=== PATIENT | female | born 1950 | race Caucasian/White ===

== ENCOUNTER → 2017-04-04 | Outpatient (CLI) | payer OTHER ==
[~2017-04-04] MED LIST: AUGMENTIN 875875 MG PO; BENADRYL25 MG PO; BENICAR PO; BENICAR20 MG PO; CALCIUM 1,0001 EACH PO; CALCIUM PO; CELEXA10 MG; CELEXA20 MG PO; CIPROFLOXACIN500 M3 PO; CREON 10 CAPSUL1 CA1 PO; CREON PO; DIOVAN 80 MG TA80 M1 PO; FLEXERIL PO; HYDROCODON-ACE1 EAC7 PO; HYDROCODONE-AP1 EAC6 PO; HYDROXYCHLOROQ200 M1 PO; IBUPROFEN 200200 M1 PO; K-DUR 20 MEQ T20 MEQ PO; LORTAB PO; PANCREASE PO; PERCOCET 5-3251 EACH PO; PRILOSEC20 MG PO; PRILOSEC40 MG PO; SYNTHROID PO; SYNTHROID75 MCG PO; TAGAMETTAB; TRANSDERM-SCOP1 EACH TD
== END ==
LOC: RAD 10:29
DX: Z12.31 Encounter for screening mammogram for malignant neoplasm of breast (principal)

== ENCOUNTER 2017-11-02 20:08 | Inpatient (IN) | payer OTHER ==
[~2017-11-02] VITALS: Ht 154.9 cm; Wt 52.6 kg
[~2017-11-02 20:08] MED LIST changes: +SYNTHROID125 MC1 PO; -SYNTHROID75 MCG PO
[2017-11-02 20:17] VITALS: BP 175/85
[2017-11-02] MEDS ORDERED: PREDNISONE 10 M10 MG PO (20:30)
[2017-11-02 20:52] LABS: ABSOLUTE NEUTROPHILS 9.2 thou/uL (1.4-8.2); BASOPHILS 0.6 % (0.0-2.0); HEMATOCRIT 35.1 % (37.0-47.0); HEMOGLOBIN 11.8 gm/dL (12.0-15.0); MCH 30.4 pg (26.0-34.0); MCHC 33.8 g/dL (28.0-37.0); MCV 90.1 fL (80.0-100.0); MONOCYTES 4.8 % (1.0-8.0); PLATELET COUNT 276 thou/uL (150-400); POLYS 82.6 % (36.0-66.0); RBC 3.89 mil/uL (4.20-5.00); RDW 12.6 % (10.5-14.5); WBC 11.1 thou/uL (4.0-11.0)
[2017-11-02 21:00] LABS: CREATININE 0.7 mg/dL (0.6-1.0); POTASSIUM 3.6 mmol/L (3.5-5.1)
[2017-11-02 21:03] LABS: URINE BILIRUBIN NEGATIVE (Negative); URINE BLOOD NEGATIVE (Negative); URINE CLARITY CLEAR; URINE COLOR YELLOW; URINE GLUCOSE-RANDOM* NEGATIVE (Negative); URINE KETONES NEGATIVE (Negative); URINE LEUKOCYTES-REFLEX NEGATIVE (Negative); URINE NITRITE-REFLEX NEGATIVE (Negative); URINE PROTEIN (DIPSTICK) NEGATIVE (Negative); URINE SPECIFIC GRAVITY 1.015 (1.005-1.035); URINE UROBILINOGEN 0.2 E.U./dl (0.2-1.0)
[2017-11-02 21:06] LABS: ALBUMIN 3.5 g/dL (3.4-5.0); TOTAL BILIRUBIN 0.2 mg/dL (<0.1-1.0); TOTAL PROTEIN 6.8 g/dL (6.4-8.2)
[2017-11-02 22:26] VITALS: BP 129/69
[2017-11-02 23:08] VITALS: BP 134/73
[2017-11-03 05:47] VITALS: BP 139/78
[2017-11-03 07:43] VITALS: BP 142/74
[2017-11-03 10:57] LABS: HEMATOCRIT 33.8 % (37.0-47.0); HEMOGLOBIN 11.4 gm/dL (12.0-15.0); MCH 30.7 pg (26.0-34.0); MCHC 33.7 g/dL (28.0-37.0); MCV 91.2 fL (80.0-100.0); RBC 3.7 mil/uL (4.20-5.00); RDW 12.7 % (10.5-14.5); WBC 12.9 thou/uL (4.0-11.0)
[2017-11-03 12:11] LABS: ALBUMIN 3.3 g/dL (3.4-5.0); CALCIUM 8.5 mg/dL (8.5-10.1); CREATININE 0.6 mg/dL (0.6-1.0); POTASSIUM 4.1 mmol/L (3.5-5.1); TOTAL BILIRUBIN 0.3 mg/dL (<0.1-1.0)
[2017-11-03 17:26] VITALS: BP 126/72
[2017-11-03 20:00] VITALS: BP 138/70
[2017-11-04 04:00] VITALS: BP 142/89
[2017-11-04 09:02] LABS: HEMATOCRIT 35.1 % (37.0-47.0); HEMOGLOBIN 11.9 gm/dL (12.0-15.0); MCH 30.7 pg (26.0-34.0); MCHC 33.9 g/dL (28.0-37.0); MCV 90.5 fL (80.0-100.0); RBC 3.87 mil/uL (4.20-5.00); RDW 12.9 % (10.5-14.5); WBC 8.2 thou/uL (4.0-11.0)
[2017-11-04 09:28] VITALS: BP 143/78
[2017-11-04 14:13] VITALS: BP 143/78
== END 2017-11-04 14:40 | disposition home or self-care (01) | DRG 438 ==
LOC: ER 20:08 → EROBS 21:56 → 4N 21:56 → ENTRNSPT 11-04 14:30 → EDTRNSPTSTS 11-04 14:32 → 4N 11-04 14:40
PROVIDERS: Family Medicine; Physician Assistant
DX: K85.90 Acute pancreatitis without necrosis or infection, unspecified (principal); E43 Unspecified severe protein-calorie malnutrition; I10 Essential (primary) hypertension; E05.90 Thyrotoxicosis, unspecified without thyrotoxic crisis or storm; Z90.49 Acquired absence of other specified parts of digestive tract; Z88.8 Allergy status to other drugs, medicaments and biological substances; Z91.041 Radiographic dye allergy status; Z91.040 Latex allergy status; Z88.5 Allergy status to narcotic agent; Z91.013 Allergy to seafood; Z87.891 Personal history of nicotine dependence
CPT/HCPCS: 10790

== ENCOUNTER 2018-04-24 08:50 | Inpatient (IN) | payer OTHER ==
[~2018-04-24] VITALS: Ht 154.9 cm; Wt 50.3 kg
--- NOTE | ~2018-04-24 | HC ---
[facility] [place] [address] CONSULTATION Name: JOE HAY Room #: 449-I ADM IN M.R.#: [id number] Admission: 04/24/18 Attend Phys: Zelalem Hanson MD Discharge: Date of : 48 Report #: [id number] THIS REPORT FOR: //name// CC: Zelalem Hanson DATE OF SERVICE: 04/25/2018 CHIEF COMPLAINT: Surgical wound, abdominal wall. HISTORY OF PRESENT ILLNESS: This is a 67-year-old female patient who has recently had a long hospital stay in [place]. She developed an acute bowel perforation in early March and subsequent sepsis, respiratory failure requiring a 2-week ICU stay. She required dialysis and ventilatory support. She apparently had subsequent surgery due to obstruction and ischemia. She has had a right hemicolectomy and end-ileostomy. I was [facility] to [facility]. She has a midline incision line, most of which has healed. She has 2 openings but the most inferior of the two was clean and granulating and approximately 1-2 cm in depth. The more proximal, however, extended much deeper greater than 7 cm in depth and had a milky yellow mucoid type discharge of moderate quantity. This appearance differed very much from the output in her ileostomy bag. The drainage was not damaging the skin but was preventing the ostomy bag from staying in place. I discussed this with her primary care physician, Dr. Hanson to discuss the concern about a possible enterocutaneous or colocutaneous fistula. She was brought to the hospital and has had a fistulogram and CT, which seems to demonstrate an intra-abdominal fluid collection. It is thus far unclear as to the origin of the fluid collection whether it is colon or small bowel or other. The patient denies much pain. She is a little bit worried. She states she has a good appetite. ALLERGIES: Include LATEX, SHELLFISH, IODINE, HYDROMORPHONE and MORPHINE. MEDICATIONS: Include carvedilol, losartan, pantoprazole, inulin, iron, Lidoderm, Centrum Silver, Norvasc, vitamin C, Synthroid and Celexa. PAST MEDICAL HISTORY: Positive for hypertension, hyperthyroidism, Jose M's thyroiditis, previous laminectomy, cholecystectomy, history of pancreatitis x 12, previous Whipple procedure, bowel resection and sepsis. SOCIAL HISTORY: Negative for alcohol or tobacco use. She is a former smoker. She is and accompanied by her . REVIEW OF SYSTEMS: CONSTITUTIONAL: The patient denies fever or chills. She has had some weight loss. ENT: The patient denies earache, nasal drainage, [place] [address] CONSULTATION Name: BHARTIJOEARA GUILLENE Room #: 449-I ADM IN M.R.#: [id number] Admission: 04/24/18 Attend Phys: Zelalem Hanson MD Discharge: Date of : 48 Report #: [id number] EYES: The patient denies visual changes, redness or drainage. PULMONARY: The patient denies cough or shortness of breath. CARDIOVASCULAR: The patient denies chest pain, palpitations or diaphoresis. GASTROINTESTINAL: The patient denies nausea, vomiting or diarrhea. She is having moderate output from the midline surgical incision line. GENITOURINARY: The patient denies frequency or urgency of urination. Denies dysuria. Other systems in a 14-point review of systems are negative. PHYSICAL EXAMINATION: VITAL SIGNS: At this time include pulse 58, respiratory rate of 18, blood pressure of 91/43 and temperature 97.4. GENERAL: This is a chronically ill-appearing female patient who appears to be in minimal distress. HEENT: Head normocephalic. Nose and throat are clear. NECK: Supple. LUNGS: Clear. HEART: Regular rhythm. ABDOMEN: Soft. Bowel sounds are present. There is an ileostomy on the right lower quadrant with moderate liquid brownish green output. She has a midline surgical incision that is mostly healed. There are 2 areas of separation. The inferior one is clean and granulating and relatively shallow. The proximal one is deeper probing greater than 7 cm in depth with yellow mucoid type output. Remainder of the abdomen is soft and nontender. EXTREMITIES: Without clubbing or cyanosis. NEUROLOGICAL: The patient is alert and oriented and appropriate. LABORATORY DATA: Includes sodium 123, potassium 5.7, chloride 92, CO2 15, BUN 79, creatinine is 2.4 and glucose 134. Total bilirubin 0.4, calcium 10.3, alkaline phosphatase is elevated at 290, total protein 8.7 and albumin 3.4. White blood cell count is slightly elevated at 11.1 with a hemoglobin of 11.7 and hematocrit of 88.3. RADIOLOGICAL DATA: Barium enema studies demonstrate no evidence for any barium leakage from the proximal transverse colon stump. This may not necessarily exclude the presence of a colocutaneous fistula. She had a sinus tract study, which demonstrates a sinus tract injections under fluoroscopy with followup CT demonstrated ill-defined amorphous collection of contrast material in the right abdomen resulting from the more cephalad sinus tract injection and most of this contrast material was pulling at the resected proximal end of the transverse colon along the line of surgical moustapha with a previous right colon resection. They are ill-defined finger-like collections of contrast material extending anteriorly, laterally and cephalad from the larger collection and while there is no definite contrast material seen within the bowel, the close vicinity of these collections of contrast material to the resected margin of the transverse colon [facility] [address] [place] [address] CONSULTATION Name: JOE HAY Room #: 449-I ADM IN M.R.#: [id number] Admission: 04/24/18 Attend Phys: Zelalem Hanson MD Discharge: Date of : 48 Report #: [id number] is concerning for at least 1 fistulous communication between the extraluminal contrast material and the most proximal transverse colon and bilateral small pleural effusions were noted as well. 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 RECOMMENDATIONS: At this point in time, she has been seen by Dr. Vega, General Surgery and his input is appreciated. She will continue to eat. Antibiotics have been recommended and pending culture results. It is unclear as to whether she will require a drainage catheter to be placed into the fluid collection versus simply allowing an ostomy appliance to be fitted over the area of drainage. Further decision making pending review with the General Surgery. We will continue with packing gauze to the inferior distal incision line. We will leave the other one open to drain. <ELECTRONICALLY SIGNED> By: Ibrahima Jolly MD 04/26/18 1623 1647 0051 Ibrahima Jolly MD /nt
--- NOTE | ~2018-04-24 | HC ---
[facility] [place] [address] CONSULTATION Name: BHARTIJOE CLIFFORD Room #: 213-P [facility] IN M.R.#: [id number] Admission: 04/24/18 Attend Phys: Zelalem Hanson MD Discharge: 05/01/18 Date of : 48 Report #: [id number] THIS REPORT FOR: //name// CC: Zelalem Hanson REASON FOR CONSULTATION: Acute kidney injury. REASON FOR PRESENTATION: Increased output through her colostomy. HISTORY OF PRESENT ILLNESS: The patient is 67 with past medical history of hypertension. She had a very complicated hospital course in [place]. Apparently, the patient developed a cecal perforation with intra-abdominal peritonitis and fecal contamination. She was in the intensive care unit for an extended period of time, requiring dialysis and vent support. She ended up with right hemicolectomy and ileostomy. She was then transferred to a rehab facility here in [place]. There was a concern that she might be having a fistula. CT abdomen revealed what seems to be a fluid collection. She is currently being followed by surgical team, hospitalist team. She has leukocytosis. When she presented to the Emergency Room, her creatinine was 2.6. It is up to 3.8. She developed hyperkalemia today with a potassium up to 6.8. She also has significant metabolic acidosis. I am being consulted to manage her acute kidney injury. The pathology of the samples from her abdominal surgery revealed stage 3 adenocarcinoma of the colon. She did require 5 times dialysis treatments and ended up having a normal creatinine at the time of the discharge. PAST MEDICAL HISTORY: 1. Status post bowel perforation. 2. Adenocarcinoma, stage 3. 3. Hypothyroidism. 4. Status post . 5. Laminectomy. 6. Cholecystectomy. 7. Status post Whipple procedure. 8. Recent prolonged hospital stay, requiring vent support, dialysis for septic shock. REVIEW OF SYSTEMS: GENERAL: No fever or chills. CARDIOVASCULAR: No chest pain or palpitation. PULMONARY: No cough or hemoptysis. GASTROINTESTINAL: As per the history of present illness. GENITOURINARY: No frequency, no urgency. MEDICATIONS: 1. Carvedilol. 2. Amlodipine. 3. Levothyroxine. [facility] [address] [place] [address] CONSULTATION Name: JOE HAY Room #: 213-P [facility] IN [facility].#: [id number] Admission: 04/24/18 Attend Phys: Zelalem Hanson MD Discharge: 05/01/18 Date of : 48 Report #: [id number] SOCIAL HISTORY: She now resides in a nursing facility. No drug or alcohol abuse. PHYSICAL EXAMINATION: GENERAL: She is alert, oriented, in no apparent distress. VITAL SIGNS: Blood pressure is 93/51. HEAD AND NECK: No jugular venous distention, no bruit, no thyromegaly. CHEST: Clear to auscultation. CARDIOVASCULAR: No rub detected. ABDOMEN: Soft, nontender. Ileostomy present. LOWER EXTREMITIES: No edema. LABORATORY DATA: Reviewed. White blood cell count 13.0, potassium 6.8, carbon dioxide 10, BUN is 95, creatinine is 3.8. ASSESSMENT, IMPRESSION AND PLAN: 1. Acute kidney injury. 2. Hyperkalemia. 3. Metabolic acidosis. 4. Intra-abdominal fluid collection. 5. Hypotension with what seems to be early sepsis. 6. Adenocarcinoma of the colon. 7. Status post bowel perforation. 8. Status post prolonged ICU hospital stay, requiring dialysis and vent support. 9. Transfer the patient to the ICU. 10. Aggressive fluid resuscitation. 11. Reformulate her IV fluids. 12. Treat her hyperkalemia. 13. Strict input and output. 14. Follow cultures. 15. Adjust antibiotic. 16. We will follow along after we repeat the labs this afternoon. <ELECTRONICALLY SIGNED> By: Courtney Cordova MD 05/06/18 0741 0810 1316 Courtney Cordova MD /nt
--- NOTE | ~2018-04-24 | HC ---
[facility] [place] [address] CONSULTATION Name: BREANNE VELAZCO Room #: 213-P ADM IN M.R.#: [id number] Admission: 04/24/18 Attend Phys: Zelalem Hanson MD Discharge: Date of : 48 Report #: [id number] THIS REPORT FOR: //name// CC: Zelalem Hanson DATE OF SERVICE: 04/26/2018 CONSULTATION: Infectious Diseases. 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 Infectious Disease consultation was requested to assist with antibiotic management. The patient was visiting her grandchild in [place] approximately 5 weeks ago when she developed abdominal pain. She was found to have a perforated bowel related probably to previous surgical adhesions. She required a bowel resection, but had a very complicated postoperative course with sepsis, respiratory failure requiring a ventilator, renal failure requiring dialysis, ischemic bowel requiring second laparotomy. The patient was stabilized and returned to her home in [place] for rehabilitation. In rehabilitation, Dr. Jolly noted that the midline incision has increasing mucousy drainage. She was admitted to the hospital for further evaluation. CT scan suggests a large abscess between the draining hole in the midline surgical wound and the stump of the left hemicolon. Infectious Disease consultation was requested to assist with antibiotic management. PAST MEDICAL HISTORY: The patient has a very complex past medical history, which includes recurring bouts of pancreatitis. 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 She has only had one episode of pancreatitis since the Whipple. She had about 11 episodes prior to that. PAST SURGICAL HISTORY: Includes cholecystectomy, section, laminectomy as well as the 2 recent laparotomies. MEDICAL DIAGNOSES: Include hypertension, Jose M thyroiditis with resulting hypothyroidism. ALLERGIES: THE PATIENT HAS ALLERGY TO HYDROMORPHONE. FAMILY HISTORY: Noncontributory. SOCIAL HISTORY: The patient is . She is retired. She did smoke cigarettes, but quit about a year ago. No history of alcohol or drugs. REVIEW OF SYSTEMS: [facility] [address] [place] [address] CONSULTATION Name: BREANNE VELAZCO Room #: 213-P [facility] IN M.R.#: [id number] Admission: 04/24/18 Attend Phys: Zelalem Hanson MD Discharge: Date of : 48 Report #: [id number] GENERAL: At this time the patient is not complaining of fevers, chills, sweats. She feels very weak, but thinks this is improving. ENT: No headache, sinus congestion, sore throat, trouble swallowing. CHEST: No cough, chest pain, shortness of breath. The patient is on room air without dyspnea. She is very weak. GASTROINTESTINAL: The patient denies nausea, vomiting. She has a colostomy. She is able to eat with minimal to mild discomfort. GENITOURINARY: No complaints. She is off dialysis. EXTREMITIES: No complaints. PHYSICAL EXAMINATION: GENERAL: The patient appears to be a chronically ill patient, but comfortable, not in any distress. VITAL SIGNS: Normal. The patient is afebrile. Her weight is 109 pounds, which is about her baseline. SKIN: Shows no rash, nor exanthem. Surgical wound on the abdomen as described below. ENT: Negative. NEUROLOGIC: Mentally awake, alert, appropriate. She is oriented. She appears to be fairly upbeat psychologically considering the recent situation. CARDIOVASCULAR: Heart sounds are normal. LUNGS: Clear bilaterally. ABDOMEN: Belly is thin, soft with minimal tenderness. Colostomy is present on the right side. There is a midline incision. In the center of the midline incision there is a puddle of white mucus material, which is soiling the dressing. The belly is mildly tender. There is no rebound or guarding. EXTREMITIES: Thin, but otherwise unremarkable. LABORATORY DATA: White count 11.1, hemoglobin 11.7, platelets 536,000. Electrolytes: Sodium 123, potassium 5.7, chloride 92, bicarb 15, BUN 79, creatinine 2.4, alkaline phosphatase is elevated at 290. SGOT and SGPT are normal. Gram stain from the drainage from the midline incision shows gram-positive cocci in pairs, clusters and chains. IMPRESSION: The patient most likely has a connection between the left hemicolon mucous fistula, an abdominal abscess in the incision creating a draining colocutaneous fistula and draining abscess cavity. This is not enteric since the GI tract exits through the ileostomy on the right. However, she does have a mucus abscess. The cultures suggest what would probably be some mixture of strep. At this time, I concur with Zosyn for appropriate coverage of abdominal abscess. I discussed with the patient surgical versus nonsurgical treatment. It is notable that her alkaline phosphatase is quite elevated. Her creatinine is elevated, but she is just finishing coming off dialysis a few weeks ago. It may be worthwhile to rule out any obstructive disease in the biliary tract, [facility] [address] [facility] [place] [address] CONSULTATION Name: BREANNE VELAZCO Room #: 213-P ADM IN M.R.#: [id number] Admission: 04/24/18 Attend Phys: Zelalem Hanson MD Discharge: Date of : 48 Report #: [id number] particularly with her past Whipple procedure. It will be important to check her TSH with her history of thyroiditis. We will continue Zosyn and await input from our surgical colleagues regarding medical versus nonmedical therapy for the abscess and fistula. At this point, the abscess appears to be draining adequately spontaneously and will probably not need any additional drains as long as this continues. <ELECTRONICALLY SIGNED> By: Marky Stallings MD 04/27/185 1835 1117 Marky Stallings MD /nt
--- NOTE | ~2018-04-24 | HC ---
[facility] [place] [address] CONSULTATION Name: BHARTIJOE DARRIN Room #: 213-P [facility] IN M.R.#: [id number] Admission: 04/24/18 Attend Phys: Zelalem Hanson MD Discharge: 05/01/18 Date of : 48 Report #: [id number] THIS REPORT FOR: //name// CC: Zelalem Hanson DATE OF SERVICE: 04/28/2018 HISTORY OF PRESENT ILLNESS: The patient is a 67-year-old white female who had a recent long complicated hospital stay in [place]. She had acute bowel perforation in early March with sepsis; respiratory failure; renal failure, needed dialysis; and was on mechanical ventilation. She had a second bowel surgery due to obstruction/ischemia. She was transferred back from the [place] area initially to advanced off the ventilator, had an open abdominal wound. She was seen by wound care with concern with increased output. She underwent a fistulogram here at [facility], was noted to have intra-abdominal cavity. Surgeries involved with no further intervention recommended at this time. She is being monitored regarding acute renal insufficiency. Wound grew out methicillin sensitive Staph aureus and she is on IV antibiotics as per Infectious Disease. We are seeing her in rehabilitation medicine consultation. PAST MEDICAL HISTORY: Includes hypertension, hyperthyroidism, left knee scope, Jose M's thyroiditis, laminectomy, irritable bowel syndrome, pancreatitis x 12 hospitalizations, ERCP x 4, Whipple procedure on 07/02/2014, bowel resection, sepsis, and colostomy. HABITS: Former tobacco user, quit greater than a year ago. No history of alcohol abuse. MEDICATIONS: Please see the full medication listing includes vitamins, herbals, and supplements. ALLERGIES: LATEX, IODINE, SHELLFISH, HYDROMORPHONE, AND MORPHINE. 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 Did not utilize gait aids, has steps in. REVIEW OF SYSTEMS: Did not offer any current complaints of chest pain, shortness of breath, or abdominal discomfort. No focal extremity pain complaints. PHYSICAL EXAMINATION: GENERAL: A 67-year-old thin white female, in no obvious distress. The patient is alert. She is pleasant. VITAL SIGNS: Last recorded temperature 97.9, pulse 68, respirations 18, blood pressure 118/63. HEENT: Appeared to be benign. NEUROLOGIC: Cranial nerves grossly intact. Facies are symmetric. [address] [address] CONSULTATION Name: JOE HAY Room #: 213-P [facility] IN M.R.#: [id number] Admission: 04/24/18 Attend Phys: Zelalem Hanson MD Discharge: 05/01/18 Date of : 46 Report #: [id number] range of motion of both upper extremities, strength is grade 4-/5. DTRs are trace to 1. ABDOMEN: She has the ostomy in place. Midline abdominal incision with dressing in place. EXTREMITIES: Lower extremities, no focal calf swelling, functional range of motion, strength is grade 4-/5. DTRs are trace to 1. She has been min assist with sit to stand. Gait was 400 feet front-wheeled walker, min assist. ASSESSMENT: A 67-year-old white female with the following problem list: 1. Medical complexity with generalized debilitation. 2. Intra-abdominal infection. 3. Status post prior resection/colostomy for bowel obstruction. 4. Acute renal insufficiency. 5. A surgical site infection of the abdomen following colon resection for obstruction and cecal perforation. No definite colonic fistula identified. 6. History of pancreatectomy Whipple. PLAN: Therapies are continuing to work with her including PT and OT. Insurance will need to be checked regarding rehab therapy options. <ELECTRONICALLY SIGNED> By: Rene Proctor MD 05/06/18 1455 1109 [id number] Rene Proctor MD /[facility]
[~2018-04-24 08:50] MED LIST changes: +PREDNISONE 10 M10 MG PO
[2018-04-24 09:44] LABS: CREATININE 2.6 mg/dL (0.6-1.0)
[2018-04-24] MEDS ORDERED: CARVEDILOL3.125 MG PO (14:36)
[2018-04-24] MEDS ORDERED: AVAPRO75 MG PO (14:38)
[2018-04-24] MEDS ORDERED: PROTONIX40 M1 PO (14:39)
[2018-04-24] MEDS ORDERED: IRON325 PO (14:40)
[2018-04-24] MEDS ORDERED: FIBER GUMMIES2 GM PO (14:40)
[2018-04-24] MEDS ORDERED: LIDODERM1 EACH TRANSDERM (14:41)
[2018-04-24] MEDS ORDERED: CENTRUM SILVER1 EAC4 PO (14:42)
[2018-04-24] MEDS ORDERED: VITAMINC500 PO (14:44)
[2018-04-24] MEDS ORDERED: NORVASC10 MG PO (14:44)
[2018-04-24 15:03] VITALS: BP 108/57
[2018-04-24 17:02] LABS: ABSOLUTE NEUTROPHILS 7.9 thou/uL (1.4-8.2); BASOPHILS 1.3 % (0.0-2.0); EOSINOPHILS 4.1 % (0.0-3.0); HEMATOCRIT 34.7 % (37.0-47.0); HEMOGLOBIN 11.7 gm/dL (12.0-15.0); LYMPHOCYTES 14.1 % (24.0-44.0); MCH 29.8 pg (26.0-34.0); MCHC 33.8 g/dL (28.0-37.0); MCV 88.3 fL (80.0-100.0); MONOCYTES 8.9 % (1.0-8.0); PLATELET COUNT 536 thou/uL (150-400); POLYS 71.6 % (36.0-66.0); RBC 3.93 mil/uL (4.20-5.00); RDW 16.2 % (10.5-14.5); WBC 11.1 thou/uL (4.0-11.0)
[2018-04-24 17:23] LABS: ALBUMIN 3.4 g/dL (3.4-5.0); CALCIUM 10.3 mg/dL (8.5-10.1); CREATININE 2.4 mg/dL (0.6-1.0); POTASSIUM 5.7 mmol/L (3.5-5.1); TOTAL BILIRUBIN 0.4 mg/dL (<0.1-1.0); TOTAL PROTEIN 8.7 g/dL (6.4-8.2)
[2018-04-24 19:12] VITALS: BP 104/52
[2018-04-25 00:08] VITALS: BP 105/60
[2018-04-25 04:25] VITALS: BP 107/55
[2018-04-25] MEDS ORDERED: ARANESP60 MCG/0.3 SUBQ (07:48)
[2018-04-25 09:08] VITALS: BP 108/57
[2018-04-25 15:53] VITALS: BP 91/43
[2018-04-25 18:57] VITALS: BP 87/45
[2018-04-26 03:22] VITALS: BP 105/55
[2018-04-26 07:49] VITALS: BP 111/50
[2018-04-26 15:46] VITALS: BP 98/55
[2018-04-26 20:00] VITALS: BP 93/51
[2018-04-27 05:56] LABS: HEMATOCRIT 30.3 % (37.0-47.0); HEMOGLOBIN 10.1 gm/dL (12.0-15.0); MCH 29.6 pg (26.0-34.0); MCHC 33.2 g/dL (28.0-37.0); MCV 89.2 fL (80.0-100.0); RBC 3.39 mil/uL (4.20-5.00)
[2018-04-27 06:03] LABS: ALBUMIN 2.6 g/dL (3.4-5.0); CALCIUM 9.4 mg/dL (8.5-10.1); MAGNESIUM 2.2 mg/dL (1.8-2.4); TOTAL BILIRUBIN 0.3 mg/dL (<0.1-1.0); TOTAL PROTEIN 7.6 g/dL (6.4-8.2)
[2018-04-27 06:12] LABS: POTASSIUM 6.8 mmol/L (3.5-5.1)
[2018-04-27 06:13] LABS: CREATININE 3.8 mg/dL (0.6-1.0)
[2018-04-27 08:21] VITALS: BP 111/59
[2018-04-27 08:55] VITALS: BP 100/54
[2018-04-27 10:31] LABS: CALCIUM 8.3 mg/dL (8.5-10.1); CREATININE 3.9 mg/dL (0.6-1.0)
[2018-04-27 10:39] LABS: POTASSIUM 5.4 mmol/L (3.5-5.1)
[2018-04-27 12:00] VITALS: BP 85/52
[2018-04-27 12:56] LABS: URINE POTASSIUM-RANDOM* 21.5 mmol/L
[2018-04-27 12:57] LABS: URINE BILIRUBIN NEGATIVE (Negative); URINE BLOOD NEGATIVE (Negative); URINE CLARITY CLOUDY; URINE COLOR YELLOW; URINE GLUCOSE-RANDOM* NEGATIVE (Negative); URINE KETONES NEGATIVE (Negative); URINE LEUKOCYTES NEGATIVE (Negative); URINE NITRITE NEGATIVE (Negative); URINE PROTEIN (DIPSTICK) NEGATIVE (Negative); URINE UROBILINOGEN 0.2 E.U./dl (0.2-1.0)
[2018-04-27 12:59] LABS: URINE CREATININE-RANDOM* 42.2 mg/dL; URINE PROTEIN-RANDOM* 39.2 mg/dL (<11.9)
[2018-04-27 13:35] LABS: BE(vivo) -16.3 mmol/L (-2 to +3); HCO3 9.2 mmol/L (22.0-26.0); PCO2 21.3 mmHg (35.0-45.0); pH 7.251 (7.360-7.450); sO2 96.1 % (92.0-98.0)
[2018-04-27 15:21] LABS: ALBUMIN 2.1 g/dL (3.4-5.0); CALCIUM 8.8 mg/dL (8.5-10.1); CREATININE 3.5 mg/dL (0.6-1.0); POTASSIUM 5.5 mmol/L (3.5-5.1)
[2018-04-27 16:20] VITALS: BP 101/58
[2018-04-27 19:35] VITALS: BP 93/52
[2018-04-28 00:30] VITALS: BP 105/55
[2018-04-28 04:28] VITALS: BP 116/60
[2018-04-28 05:56] LABS: HEMATOCRIT 25.1 % (37.0-47.0); HEMOGLOBIN 8.7 gm/dL (12.0-15.0); MCH 30.1 pg (26.0-34.0); MCHC 34.7 g/dL (28.0-37.0); MCV 86.6 fL (80.0-100.0); RBC 2.9 mil/uL (4.20-5.00); RDW 17.2 % (10.5-14.5)
[2018-04-28 06:16] LABS: CALCIUM 8.4 mg/dL (8.5-10.1); CREATININE 2.6 mg/dL (0.6-1.0); MAGNESIUM 1.7 mg/dL (1.8-2.4); PHOSPHORUS 4.8 mg/dL (2.5-4.9); TOTAL BILIRUBIN 0.3 mg/dL (<0.1-1.0); TOTAL PROTEIN 6.1 g/dL (6.4-8.2)
[2018-04-28 06:23] LABS: POTASSIUM 4.2 mmol/L (3.5-5.1)
[2018-04-28 11:13] VITALS: BP 96/58
[2018-04-28 12:08] LABS: KAPPA FREE LIGHT CHAINS 131.7 mg/L (3.3-19.4); KAPPA/LAMBDA RATIO 1.94 (0.26-1.65); LAMBDA FREE LIGHT CHAINS 67.8 mg/L (5.7-26.3)
[2018-04-28 15:29] VITALS: BP 105/65
[2018-04-28 17:09] LABS: GLOBULIN TOTAL 4.5 g/dL (2.2-3.9); M-SPIKE Not Observed g/dL (Not Observed)
[2018-04-28 19:53] VITALS: BP 106/60
[2018-04-29 05:05] VITALS: BP 126/73
[2018-04-29 05:35] LABS: ALBUMIN 1.9 g/dL (3.4-5.0); CALCIUM 8.1 mg/dL (8.5-10.1); PHOSPHORUS 3.4 mg/dL (2.5-4.9); POTASSIUM 3.4 mmol/L (3.5-5.1)
[2018-04-29 05:36] LABS: CREATININE 1.6 mg/dL (0.6-1.0)
[2018-04-29 07:20] VITALS: BP 128/69
[2018-04-29 07:47] LABS: MAGNESIUM 2.3 mg/dL (1.8-2.4)
[2018-04-29 15:08] VITALS: BP 125/76
[2018-04-29 20:18] VITALS: BP 139/78
[2018-04-30 04:10] VITALS: BP 141/79
[2018-04-30 07:05] VITALS: BP 151/83
[2018-04-30 07:19] VITALS: BP 157/112
[2018-04-30 09:34] LABS: CALCIUM 8.7 mg/dL (8.5-10.1); CREATININE 1.4 mg/dL (0.6-1.0); POTASSIUM 4.1 mmol/L (3.5-5.1)
[2018-04-30 09:39] LABS: ALBUMIN 2.3 g/dL (3.4-5.0)
[2018-04-30 12:05] VITALS: BP 139/72
[2018-04-30 15:14] VITALS: BP 131/78
[2018-04-30 19:57] VITALS: BP 157/85
[2018-05-01 04:23] VITALS: BP 171/98
[2018-05-01 05:21] LABS: ALBUMIN 2.1 g/dL (3.4-5.0); CALCIUM 8.5 mg/dL (8.5-10.1); CREATININE 0.9 mg/dL (0.6-1.0); PHOSPHORUS 3.1 mg/dL (2.5-4.9); POTASSIUM 4.2 mmol/L (3.5-5.1)
[2018-05-01 06:38] VITALS: BP 160/81
[2018-05-01 07:54] VITALS: BP 174/94
[2018-05-01] MEDS ORDERED: ANCEF 1GM1 GM/50 M1 IVPB (11:05)
== END 2018-05-01 16:12 | DRG 862 ==
LOC: RAD 08:50 → 2N 13:40 → 4W 13:40 → RAD 15:57 → SICU 04-26 18:17 → 2N 04-27 09:24
PROVIDERS: Family Medicine; Hospitalist
PROC: B543ZZA Ultrasonography of Right Jugular Veins, Guidance (ICD-10-PCS; principal; 2018-04-24)
PROC: 05HM33Z Insertion of Infusion Device into Right Internal Jugular Vein, Percutaneous Approach (ICD-10-PCS; principal; 2018-04-24)
DX: T81.4XXA Infection following a procedure, initial encounter (principal); A41.9 Sepsis, unspecified organism; K63.2 Fistula of intestine; N17.9 Acute kidney failure, unspecified; E87.2 Acidosis; E87.1 Hypo-osmolality and hyponatremia; C18.9 Malignant neoplasm of colon, unspecified; Y83.3 Surgical operation with formation of external stoma as the cause of abnormal reaction of the patient, or of later complication, without mention of misadventure at the time of the procedure; E87.5 Hyperkalemia; E83.52 Hypercalcemia; I10 Essential (primary) hypertension; E05.90 Thyrotoxicosis, unspecified without thyrotoxic crisis or storm; E87.6 Hypokalemia; E06.3 Autoimmune thyroiditis; E03.9 Hypothyroidism, unspecified; M54.9 Dorsalgia, unspecified; B95.61 Methicillin susceptible Staphylococcus aureus infection as the cause of diseases classified elsewhere; D64.9 Anemia, unspecified; T37.8X5A Adverse effect of other specified systemic anti-infectives and antiparasitics, initial encounter; Z90.410 Acquired total absence of pancreas; Z90.49 Acquired absence of other specified parts of digestive tract; Z87.891 Personal history of nicotine dependence; Z98.891 History of uterine scar from previous surgery; Z68.20 Body mass index [BMI] 20.0-20.9, adult; Y92.89 Other specified places as the place of occurrence of the external cause; Z79.4 Long term (current) use of insulin; Z79.899 Other long term (current) drug therapy; Z91.041 Radiographic dye allergy status; Z91.040 Latex allergy status; Z88.5 Allergy status to narcotic agent; Z91.013 Allergy to seafood
CPT/HCPCS: 10047; 10797; 15002; 27000

== ENCOUNTER → 2018-12-04 | Outpatient (CLI) | payer OTHER ==
[~2018-12-04] VITALS: Ht 157.5 cm; Wt 42.6 kg
[~2018-12-04] MED LIST changes: +ANCEF 1GM1 GM/50 M1 IVPB; +ARANESP60 MCG/0.3 SUBQ; +AVAPRO75 MG PO; +CARVEDILOL3.125 MG PO; +CENTRUM SILVER1 EAC4 PO; +FIBER GUMMIES2 GM PO; +HAIR, SKIN & N1 EAC1 PO; +IRON325 PO; +LIDODERM1 EACH TRANSDERM; +NORVASC10 MG PO; +PROTONIX40 M1 PO; +SYNTHROID150 MCG PO; +TYLENOL EXTRA500 MG PO; +VITAMINC500 PO
--- NOTE | 2018-12-05 16:16 | P ---
[facility] [place] [address] PROCEDURE REPORT Name: JOE HAY Room #: [facility].#: [id number] Admission: 12/04/18 ������������������ Attend Phys: Marky Neely MD Discharge: ������������������ Date of : 48 Report #: [id number] THIS REPORT FOR: //name// CC: Marky Larson MD BRIEF HISTORY: The patient is a 68-year-old woman with a history of colon perforation as a result of a colon cancer, which required urgent surgical intervention with temporary ileostomy. The patient reports that she has had takedown of her ileostomy and reestablishment of continuity of the GI tract. She also reports that genetic markers on her tumor were negative. PREOPERATIVE DIAGNOSIS: History of colon cancer. POSTOPERATIVE DIAGNOSIS: History of colon cancer with normal surveillance examination. MEDICATIONS: Deep sedation with propofol per Anesthesia. SPECIMEN: None. ESTIMATED BLOOD LOSS: None. PROCEDURE: Colonoscopy to ileocolonic anastomosis and ileum. FINDINGS: Prior to propofol sedation, procedure of colonoscopy discussed with the patient as well as potential risks and its complications. She indicates she understands and desires to proceed. DESCRIPTION OF PROCEDURE: With the patient in left lateral decubitus position, digital examination was completed, which revealed no abnormalities. Subsequently, the Olympus video colonoscope was introduced in the rectum, advanced under direct vision to the proximal colon. In the proximal colon, the ileocolonic anastomosis was identified. It was unremarkable and I was able to easily advance the scope into the distal ileum, which is noted to be unremarkable as well. At that point, the scope was slowly withdrawn and careful circumferential views were obtained. Upon slow withdrawal of the scope, the prep was good. Mucosa was within normal limits, normal vascular pattern, normal light reflex. No neoplastic or inflammatory changes were seen. No polyps were seen on this examination. She had normal mucosa throughout. The scope was withdrawn in the rectum and no abnormalities were seen. Upon retroflexion, no abnormalities were seen. Scope was withdrawn. The patient tolerated the procedure well. CONDITION OF THE PATIENT UPON DISCHARGE: Following procedure, the patient [address] [address] PROCEDURE REPORT Name: JOE HAY Room #: [facility].#: [id number] Admission: 12/04/18 ������������������ Attend Phys: Marky Neely MD Discharge: ������������������ Date of : 46 Report #: [id number] drowsy, aroused, conversant and will be discharged home when fully ambulatory. INSTRUCTIONS TO THE PATIENT AND FAMILY AT THE TIME OF DISCHARGE: No neoplastic lesions seen. Suggest high-fiber diet. Also, suggest she return in 3 years for high risk screening colonoscopy. Her last colonoscopy was 20 years ago. Withdrawal time from the cecum was 9 minutes and 5 seconds. ��������������������������������������������� <ELECTRONICALLY SIGNED> ���������������������������������������� By: Marky Neely MD ��������������������������������������������� 12/05/18 1616 0847 [id number] Marky Neely MD /nt
== END | disposition home or self-care (01) ==
LOC: GI 06:59
DX: Z12.11 Encounter for screening for malignant neoplasm of colon (principal); Z85.038 Personal history of other malignant neoplasm of large intestine; Z98.0 Intestinal bypass and anastomosis status; I10 Essential (primary) hypertension; E03.9 Hypothyroidism, unspecified; Z90.49 Acquired absence of other specified parts of digestive tract; F41.9 Anxiety disorder, unspecified; Z98.890 Other specified postprocedural states; Z87.891 Personal history of nicotine dependence; Z91.040 Latex allergy status; Z87.19 Personal history of other diseases of the digestive system; Z79.899 Other long term (current) drug therapy; Z91.041 Radiographic dye allergy status
CPT/HCPCS: 62110; 62900

== ENCOUNTER → 2018-12-22 | Outpatient (CLI) | payer OTHER | LOC: BC 12:52 | DX: Z12.31 Encounter for screening mammogram for malignant neoplasm of breast (principal) ==

== ENCOUNTER → 2019-06-11 | Outpatient (CLI) | payer OTHER | LOC: RAD 10:03 | DX: N63.20 Unspecified lump in the left breast, unspecified quadrant (principal) ==

== ENCOUNTER → 2020-01-11 | Outpatient (CLI) | payer OTHER | LOC: RAD 09:13 | DX: Z12.31 Encounter for screening mammogram for malignant neoplasm of breast (principal) ==

== ENCOUNTER → 2020-10-11 | Outpatient (CLI) | payer OTHER | LOC: CAT 08:04 | PROVIDERS: ATTEND Family Medicine | DX: R42 Dizziness and giddiness (principal) ==

== ENCOUNTER → 2021-01-18 | Outpatient (CLI) | payer OTHER | LOC: BC 13:20 | PROVIDERS: ATTEND Family Medicine | DX: Z12.31 Encounter for screening mammogram for malignant neoplasm of breast (principal) ==

== ENCOUNTER 2021-03-06 07:36 | Emergency (ER) | payer OTHER ==
[~2021-03-06] VITALS: Ht 154.9 cm; Wt 44.0 kg
[2021-03-06 08:06] LABS: URINE BILIRUBIN NEGATIVE (Negative); URINE BLOOD NEGATIVE (Negative); URINE CLARITY CLEAR; URINE COLOR YELLOW; URINE GLUCOSE-RANDOM* NEGATIVE (Negative); URINE KETONES NEGATIVE (Negative); URINE LEUKOCYTES-REFLEX NEGATIVE (Negative); URINE NITRITE-REFLEX NEGATIVE (Negative); URINE PROTEIN (DIPSTICK) NEGATIVE (Negative); URINE SPECIFIC GRAVITY <= 1.005 (1.005-1.035); URINE UROBILINOGEN 0.2 E.U./dl (0.2-1.0)
[2021-03-06 08:12] LABS: ABSOLUTE NEUTROPHILS 4.4 thou/uL (1.4-8.2); EOSINOPHILS 3.7 % (0.0-3.0); HEMATOCRIT 41.9 % (37.0-47.0); HEMOGLOBIN 13.8 gm/dL (12.0-15.0); LYMPHOCYTES 24.4 % (24.0-44.0); MCH 29.8 pg (26.0-34.0); MCHC 32.9 g/dL (28.0-37.0); MCV 90.4 fL (80.0-100.0); MONOCYTES 5.7 % (1.0-8.0); PLATELET COUNT 215 thou/uL (150-400); POLYS 65.2 % (36.0-66.0); RBC 4.63 mil/uL (4.20-5.00); RDW 12.8 % (10.5-14.5); WBC 6.8 thou/uL (4.0-11.0)
[2021-03-06 08:20] LABS: CALCIUM 9.3 mg/dL (8.5-10.1)
[2021-03-06 08:22] LABS: AMYLASE 44 U/L (25-115); LIPASE 106 U/L (73-393)
[2021-03-06 08:26] LABS: TOTAL BILIRUBIN 0.5 mg/dL (0.2-1.0); TOTAL PROTEIN 7.5 g/dL (6.4-8.2)
[2021-03-06] MEDS ORDERED: ZOFRAN ODT4 MG PO ×2 (09:33→09:35)
[2021-03-06] MEDS ORDERED: HYDROCODON-ACE1 EAC7 PO ×2 (09:33→09:35)
[2021-03-06 10:22] VITALS: BP 120/62
== END 2021-03-06 10:24 | disposition home or self-care (01) ==
LOC: ER 07:36
PROVIDERS: Emergency Medicine
DX: R10.817 Generalized abdominal tenderness (principal); R11.0 Nausea; F17.210 Nicotine dependence, cigarettes, uncomplicated; I10 Essential (primary) hypertension; E03.9 Hypothyroidism, unspecified; Z98.890 Other specified postprocedural states; Z90.49 Acquired absence of other specified parts of digestive tract; Z88.8 Allergy status to other drugs, medicaments and biological substances; Z88.5 Allergy status to narcotic agent; Z91.013 Allergy to seafood

== ENCOUNTER 2021-03-07 00:49 | Inpatient (IN) | payer OTHER ==
[~2021-03-07] VITALS: Ht 152.4 cm; Wt 44.0 kg
[~2021-03-07 00:49] MED LIST changes: +ZOFRAN ODT4 MG PO
[2021-03-07 00:53] VITALS: BP 163/61
[2021-03-07 01:51] LABS: ABSOLUTE NEUTROPHILS 3.9 thou/uL (1.4-8.2); BASOPHILS 0.9 % (0.0-2.0); EOSINOPHILS 4.3 % (0.0-3.0); HEMATOCRIT 36.3 % (37.0-47.0); HEMOGLOBIN 12.1 gm/dL (12.0-15.0); LYMPHOCYTES 28.5 % (24.0-44.0); MCHC 33.3 g/dL (28.0-37.0); MCV 90.1 fL (80.0-100.0); MONOCYTES 5.4 % (1.0-8.0); PLATELET COUNT 172 thou/uL (150-400); POLYS 60.9 % (36.0-66.0); RBC 4.03 mil/uL (4.20-5.00); RDW 12.7 % (10.5-14.5); WBC 6.5 thou/uL (4.0-11.0)
[2021-03-07 01:58] LABS: CALCIUM 8.6 mg/dL (8.5-10.1); CREATININE 0.9 mg/dL (0.6-1.0); POTASSIUM 4.6 mmol/L (3.5-5.1)
[2021-03-07 02:05] LABS: ALBUMIN 3.1 g/dL (3.4-5.0); TOTAL BILIRUBIN 0.2 mg/dL (0.2-1.0); TOTAL PROTEIN 6.3 g/dL (6.4-8.2)
[2021-03-07 07:20] VITALS: BP 129/63
[2021-03-07 08:54] VITALS: BP 129/54
--- NOTE | 2021-03-07 09:17 | NUR ---
ASSESSMENT: CM REVIEWED CHART AND SPOKE WITH PATIENT AND HER AT THE BEDSIDE. PT IS ALERT AND ORIENTED X4.PT WAS ADMITTED WITH ABDOMINAL PAIN. PT HAD CT THAT WAS NEGATIVE. GI HAS BEEN CONSULTED. PT REPORTS SHE LIVES IN A HOUSE WITH HER . PT REPORTS ABOUT 7 STEPS TO ENTER THE HOME WITH HANDRAILS AND ANOTHER 7 WITH HANDRAILS TO HER BEDROOM. PT REPORTS SHE IS FULLY INDEPENDENT WITH ADLS AND AMBULATION. PT REPORTS SHE HAS BEEN TO [facility] IN 2018 AND THINKS SHE HAS HAD [facility] IN THE PAST. CM DISCUSSED ROLE. PT DOES NOT ANTICIPATE ANY NEEDS FROM CM. CM WILL CONTINUE TO FOLLOW TO ASSIST NEEDED.
--- NOTE | 2021-03-07 11:08 | NUR ---
PT RECEIVED FROM THE ER AT 0740 ALERT AND IN NO ACUTE DISTRESS. PT ORIENTED TO UNIT AND ADMISSION COMPLETED. GI EMS HELICOPTER PILOT IN TO SEE AND EVAL PT. MED GIVEN FOR C/O NAUSEA AND HEADACHE W/ SOME RELIEF. PLAN FOR EGD AT 1300 TODAY. REMAINS NPO. STAT COVID TEST NOT DONE IN ER BUT OBTAINED HERE AND SENT TO LAB.
--- NOTE | 2021-03-07 18:30 | NUR ---
PT WENT FOR EGD AND DUODENAL ULCER FOUND. STARTED ON CLEAR LIQUIDS BUT NOT ABLE TO TAKE MUCH. STILL HAVING NAUSEA WHICH IS HELPED BY IV ZOFRAN. VOIDING WELL. PLAN FOR DC IN AM.
[2021-03-07 18:53] VITALS: BP 132/69
[2021-03-08 02:53] LABS: HEMATOCRIT 35.9 % (37.0-47.0); HEMOGLOBIN 11.9 gm/dL (12.0-15.0); MCH 30.3 pg (26.0-34.0); MCHC 33.2 g/dL (28.0-37.0); MCV 91.2 fL (80.0-100.0); RBC 3.94 mil/uL (4.20-5.00); RDW 12.7 % (10.5-14.5); WBC 10.3 thou/uL (4.0-11.0)
[2021-03-08 03:18] LABS: CALCIUM 8.2 mg/dL (8.5-10.1); CREATININE 0.4 mg/dL (0.6-1.0)
[2021-03-08 03:46] LABS: POTASSIUM 5.7 mmol/L (3.5-5.1)
[2021-03-08 03:52] VITALS: BP 123/64
[2021-03-08 08:26] VITALS: BP 114/62
--- NOTE | 2021-03-08 11:05 | NUR ---
Nutrition: screen for BMI 18.9. Pt admit with abd pain that started a few days STUNNER; also had N/V. Noted no signficant weight change from wt in 2019 at 94 lb, wt is WNL. Overall wt is down at least 10 lb from 2018. Pt noted to have extensive med hx: Whipple for pancretic tumor, pnacreatitis, colon Ca w/ hemicolectomy, ARF, ileostomy. GI found duodenal ulcer and gastritis-bx taken. Pt unavailable for interview this am. GI noted pt tolerating clear liquid diet well, no N/V this am. K 5.7, albumin 3.1. Meds: protonix, IVF. Awaiting bx results, plan to adv diet and discharge if tolerating po and pain controlled. Assess at mild nutrition risk at this time. RD to follow up advance of diet, intake and further needs 03/10.
--- NOTE | 2021-03-08 11:43 | NUR ---
ON-GOING ASSESSMENT: CM REVIEWED CHART. PT HAD EGD YESTERDAY AND HER DIET WAS ADVANCED. PT HAD A SLIGHT TEMPERATURE BUT IS NOW CURRENTLY AFEBRILE. IF PT REMAINS AFBRILE SHE MAY POSSIBLY DISCHARGE LATER TODAY PER ATTENDING. PT WILL HAVE NO NEEDS FROM CM PRIOR TO DISCHARGE.
[2021-03-08 12:52] LABS: URINE BILIRUBIN NEGATIVE (Negative); URINE BLOOD TRACE (Negative); URINE CLARITY CLEAR; URINE COLOR YELLOW; URINE GLUCOSE-RANDOM* NEGATIVE (Negative); URINE KETONES 1+ (Negative); URINE LEUKOCYTES-REFLEX NEGATIVE (Negative); URINE NITRITE-REFLEX NEGATIVE (Negative); URINE PROTEIN (DIPSTICK) NEGATIVE (Negative); URINE SPECIFIC GRAVITY 1.015 (1.005-1.035); URINE UROBILINOGEN 0.2 E.U./dl (0.2-1.0)
[2021-03-08] MEDS ORDERED: PROTONIX40 M4 PO (14:51)
[2021-03-08] MEDS ORDERED: LEVOTHYROXINE75 MC1 PO (14:52)
--- NOTE | 2021-03-08 15:08 | NUR ---
PT IS A&O*4, ROOM AIR. GET UP BY LIP. NO PAIN. FEVER GOES AWAY, RECHECK THREE TIMES DURING THIS SHIFT. REPORT TO . WILL FOLLOW ORDERS.
[2021-03-08 15:10] VITALS: BP 114/62
--- NOTE | 2021-03-10 08:07 | PATH ---
[facility] [address] [address] PATHOLOGY RPT PROCEDURE Name: BREANNE HAY Room #: 434-P DIS IN M.R.#: [id number] Admission: 03/07/21 Date of : 46 Discharge: 03/08/21 Report #: [id number] Path Case #: [id number] [facility] Accession Number: [id number] . 01 Material submitted: . gastrointestinal site - GASTRIC BIOPSIES R/O H. PYLORI . 01 Clinical history: . N/V, ABD PAIN GASTRIC ULCER, GASTRITIS . 02 Diagnosis: Gastric mucosa, gastric rule out H. pylori, endoscopic biopsy: - Mild chronic gastritis with features of reactive gastropathy. - Negative for intestinal metaplasia or atrophy. - Negative for Helicobacter pylori (properly controlled immunohistochemical stain performed). (IUV/db; 03/09/2021) LBQ 03/09/2021 1254 Local . 02 Electronically signed: . Rose Ramírez MD, Pathologist NPI- [id number] . 01 Gross description: . The specimen is submitted in formalin, labeled "Juan A Breanne, gastric biopsy". Received are 4 segments of pale parra tissue ranging in size from 0.3 to 0.6 cm in maximum dimensions. The specimen is submitted in cassette A1. ([facility]; 03/08/2021) NRI/NRI 03/08/2021 1657 Local . 02 Pathologist provided ICD-10: K29.50 . 02 CPT . 162645, [id number] Specimen Comment: A courtesy copy of this report has been sent to [phone] Specimen Comment: [phone], Specimen Comment: Report sent to ,DR ARTEAGA / DR WATKINS Specimen Comment: Report sent to Performed at: [address] [id number] MD Jeronimo Valdez MD Phone: [phone] Performed at: [address] [place] [address] PATHOLOGY RPT PROCEDURE Name: BREANNE HAY Room #: 434-P DIS IN M.R.#: [id number] Admission: 03/07/21 Date of : 46 Discharge: 03/08/21 Report #: [id number] Path Case #: [id number] [facility] [address], [place], [place] [id number] MD Rose Ramírez MD Phone: [phone]
== END 2021-03-08 15:28 | disposition home or self-care (01) | DRG 384 ==
LOC: ER 00:49 → EROBS 02:50 → 4S 02:50 → EROBS 02:51 → 4S 07:30
PROVIDERS: Emergency Medicine; Nurse Practitioner Family; ADMIT Internal Medicine; ATTEND Internal Medicine
PROC: 0DB68ZX Excision of Stomach, Via Natural or Artificial Opening Endoscopic, Diagnostic (ICD-10-PCS; principal; 2021-03-07)
DX: K26.9 Duodenal ulcer, unspecified as acute or chronic, without hemorrhage or perforation (principal); K29.70 Gastritis, unspecified, without bleeding; K21.9 Gastro-esophageal reflux disease without esophagitis; F41.9 Anxiety disorder, unspecified; I10 Essential (primary) hypertension; Z20.822 Contact with and (suspected) exposure to COVID-19; E03.9 Hypothyroidism, unspecified; Z90.49 Acquired absence of other specified parts of digestive tract; Z93.2 Ileostomy status; Z88.6 Allergy status to analgesic agent; Z91.041 Radiographic dye allergy status; Z91.040 Latex allergy status; Z91.013 Allergy to seafood; Z87.891 Personal history of nicotine dependence; Z87.01 Personal history of pneumonia (recurrent); Z85.038 Personal history of other malignant neoplasm of large intestine; Z98.42 Cataract extraction status, left eye; Z98.41 Cataract extraction status, right eye; Z79.1 Long term (current) use of non-steroidal anti-inflammatories (NSAID); Z79.899 Other long term (current) drug therapy
CPT/HCPCS: 10195; 62110; 62900; 70005